=== PATIENT | female | born 1975 | race African-American/Black ===

== ENCOUNTER 2019-08-03 07:32 | Outpatient (CLI) | payer OTHER, SELFPAY ==
--- NOTE | ~2019-08-03 | MM_ITS ---
EXAMINATION: MM screening adria BI w maurizio HISTORY: Screening mammogram TECHNIQUE: Craniocaudal and mediolateral oblique 3-D tomosynthesis images were obtained and synthetic 2-D images were generated. CAD analysis was submitted and interpreted. COMPARISON: Comparison to multiple prior studies sequentially, with oldest reviewed study dated 09/2015. BREAST PARENCHYMAL COMPOSITION: There are scattered areas of fibroglandular density. FINDINGS: There is no evidence of suspicious mass, calcification, or architectural distortion to sugg est malignancy in either breast. There has been no suspicious interval change. IMPRESSION: 1. No mammographic evidence of malignancy. 2. Recommend routine screening mammography in one year. BI-RADS Category 1: Negative Reviewed, dictated and finalized at location A. GER IMAGING
== END 2019-08-03 07:33 | disposition home or self-care (01) ==
PROVIDERS: PCP Family Medicine; Visit Provider Obstetrics & Gynecology
DX: Z12.31 Encounter for screening mammogram for malignant neoplasm of breast (principal)
CPT/HCPCS: 77063; 77067

== ENCOUNTER 2019-08-23 14:58 | Emergency (ER) | payer OTHER, SELFPAY ==
[2019-08-23 15:06] VITALS: BP 130/78; PULSE 92; RESP 14; TEMP 36.1; O2SAT 100
--- NOTE | 2019-08-23 16:37 | ED.NECK ---
HPI - Neck Pain/Injury General Chief Complaint: Neck Pain/Injury <Gina Bethea PA-C - Last Filed: 08/23/19 16:41> Stated Complaint: right neck pain, radiating x1 wk <Gina Bethea PA-C - Last Filed: 08/23/19 16:41> Time Seen by Provider: 08/23/19 15:36 <Gina Bethea PA-C - Last Filed: 08/23/19 16:41> Source: patient <Gina Bethea PA-C - Last Filed: 08/23/19 16:41> Mode of arrival: ambulatory <KELSEY Stuart Last Filed: 08/23/19 16:41> Limitations: no limitations <Gina Bethea PA-C - Last Filed: 08/23/19 16:41> History of Present Illness HPI Narrative: Patient presents with chief complaint of right-sided neck spasming that began 1 week ago after the patient woke. Patient states she feels that her symptoms started by sleeping wrong. Patient denies any loss of range of motion, tingling or numbness to her upper extremity. Patient denies any chest pain or shortness of breath. Patient denies any direct injury to her neck or shoulder. Patient denies any other symptoms or concerns. <Gina Bethea PA-C - Last Filed: 08/23/19 16:41> Related Data Home Medications: Home Medications Medication Instructions Recorded Confirmed atorvastatin 80 mg PO DAILY 08/23/19 metformin 500 mg PO DAILY 08/23/19 <Gina Bethea PA-C - Last Filed: 08/23/19 16:41> Allergies/Adverse Reactions: Allergies Allergy/AdvReac Type Severity Reaction Status Date / Time Sulfa (Sulfonamide Allergy Unknown RESPIR. Verified 08/23/19 15:13 Antibiotics) DISTRESS <Gina Bethea PA-C - Last Filed: 08/23/19 16:41> Review of Systems Review of Systems: Narrative: CONSTITUTIONAL: Denies fever, chills, or sweats. EYES: Denies visual changes, redness, or discharge. ENT: Denies rhinorrhea, congestion, sore throat, or otalgia. CARDIOVASCULAR: Denies chest pain, palpitations, or edema. RESPIRATORY: Denies cough or dyspnea. GASTROINTESTINAL: Denies abdominal pain, nausea, vomiting, or diarrhea. GENITOURINARY: Denies dysuria or hematuria. SKIN: Denies rash or itching. MUSCULOSKELETAL: Reports neck pain denies back pain, joint pain, or myalgia. NEUROLOGIC: Denies headache, numbness, dizziness, or weakness. PSYCHIATRIC: Denies anxiety or depression. <Gina Bethea PA-C - Last Filed: 08/23/19 16:41> PMF Family History Family History: Family History (Updated 04/18/16 @ 14:07 by DOCTOR UNKNOWN) Sibling Diabetes mellitus Other Family history of allergic disorder Family history of malignant neoplasm Hypertension <Gina Bethea PA-C - Last Filed: 08/23/19 16:41> Social History Social History: Social History Smoking status: Never smoker Alcohol intake: current Gender identity (if verbalized by the patient): Female <Gina Bethea PA-C - Last Filed: 08/23/19 16:41> Exam Narrative: Exam Narrative: GENERAL: Well-appearing, well-nourished, and in no acute distress. HEAD: Normocephalic, atraumatic. EYES: PERRLA and EOMI. ENT: Nares clear, no rhinorrhea or epistaxis. Mucous membranes moist. Oropharynx without tonsillar hypertrophy exudate or other lesions. Bilateral TMs pearly heller nonbulging NECK: No tenderness to palpation with palpation of cervical spine. No bony step-offs palpated. Muscle spasming to upper trapezius on the right side. Muscle spasming elicited with palpation. No adenopathy or masses. No carotid bruits or JVD CHEST: Clear to auscultation. No respiratory distress. No wheezes rales or rhonchi HEART: Regular rate and rhythm. EXTREMITIES: Normal range of motion. No edema. SKIN: Warm, dry, no rash. NEURO: No focal deficits. Alert and oriented x3. PSYCH: Normal mood and affect. <Gina Bethea PA-C - Last Filed: 08/23/19 16:41> Course Vital Signs Vital signs: Vital Signs Temperature 97.0 F L 08/23/19 15:06 Pulse Rate 92 08/23/19 15:06 Respiratory Rate 14 08/23/19 15:06 Blood Pressure 130/78 08/23/19 15:
[2019-08-23] MEDS: KETOROLAC (*BKC) 60 MG/2 ML VIAL 30 MG IM (16:45)
[2019-08-23 17:19] VITALS: BP 128/76; PULSE 90; RESP 16; O2SAT 100
== END 2019-08-23 17:19 | disposition home or self-care (01) ==
LOC: ANHED 16:44
PROVIDERS: Emergency Provider General Practice; PCP Family Medicine
DX: M43.6 Torticollis (principal)
CPT/HCPCS: 96372; 99283; J1885

== ENCOUNTER 2020-04-12 07:46 | Outpatient (CLI) | payer OTHER, SELFPAY ==
--- NOTE | ~2020-04-12 | XR_ITS ---
EXAMINATION: XR shoulder RT min 2V INDICATION: Right shoulder pain TECHNIQUE: Four views of the right shoulder are submitted. COMPARISON: None FINDINGS: Normal alignment. No fracture. Glenohumeral and acromioclavicular joint spaces are normal. Soft tissues are unremarkable. IMPRESSION: 1. No acute osseous abnormality. Reviewed, dictated and finalized at location A. ROAD CAR CLEANER
== END 2020-04-12 07:47 | disposition home or self-care (01) ==
LOC: ANHIMG 07:49
PROVIDERS: PCP Family Medicine; Visit Provider Nurse Practitioner
DX: M25.511 Pain in right shoulder (principal)
CPT/HCPCS: 73030

== ENCOUNTER 2020-07-08 15:08 | Outpatient (CLI) | payer OTHER, SELFPAY ==
--- NOTE | ~2020-07-08 | US_ITS ---
EXAMINATION: US venous doppler [facility] DATE: 07/08/2020 15:38 INDICATION: Right lower limb pain and swelling TECHNIQUE: Grayscale ultrasound images without and with compression and Doppler ultrasound images of the right lower extremity veins were obtained. COMPARISON: None. FINDINGS: The visualized portions of right common femoral vein, profunda (deep) femoral vein, femoral vein, pop liteal vein, peroneal trunk, posterior tibial veins, peroneal veins, gastrocnemius vein and greater s aphenous vein outflow are patent. IMPRESSION: 1. No deep venous thrombosis in the right lower limb. Reviewed, dictated and finalized at location B. ECT DEVELOPER
== END 2020-07-08 15:09 | disposition home or self-care (01) ==
PROVIDERS: PCP Family Medicine; Visit Provider Family Medicine
DX: R60.0 Localized edema (principal)
CPT/HCPCS: 93971

== ENCOUNTER 2020-08-05 10:19 | Outpatient (CLI) | payer OTHER, SELFPAY ==
--- NOTE | ~2020-08-05 | MM_ITS ---
EXAMINATION: MM screening adria BI w maurizio HISTORY: Screening mammogram TECHNIQUE: Craniocaudal and mediolateral oblique 3-D tomosynthesis images were obtained and synthetic 2-D images were generated. CAD analysis was submitted and interpreted. COMPARISON: August 03, 2019 bilateral digital screening mammogram July 22, 2018 diagnostic left digital mammogram and limited left breast ultrasound 06/24/2018 bilateral digital screening mammogram 06/11/2017 diagnostic left digital mammogram and limited left breast ultrasound 05/16/2017, 04/13/2016 bilateral digital screening mammogram examinations BREAST PARENCHYMAL COMPOSITION: There are scattered areas of fibroglandular density. FINDINGS: There are multiple circumscribed oval low-density radiopacities scattered in the right uppe r outer and lower-outer quadrants, likely benign intramammary lymph nodes. Another similar low densit y circumscribed opacity is noted in the posterior upper left breast on MLO view, stable in appearance since 05/16/2017. There is no evidence of suspicious mass, calcification, or architectural distortion to suggest malign brandon in either breast. There has been no suspicious interval change. IMPRESSION: 1. No mammographic evidence of malignancy. 2. Recommend routine screening mammography in one year. BI-RADS Category 2: Benign finding(s). Reviewed, dictated and finalized at location A. BASE REPORT WRITER
== END 2020-08-05 10:20 | disposition home or self-care (01) ==
LOC: ANHIMG 10:21
PROVIDERS: PCP Family Medicine; Visit Provider Obstetrics & Gynecology
DX: Z12.31 Encounter for screening mammogram for malignant neoplasm of breast (principal)
CPT/HCPCS: 77063; 77067

== ENCOUNTER 2020-11-28 11:02 | Outpatient (CLI) | payer OTHER, SELFPAY ==
--- NOTE | ~2020-11-28 | XR_ITS ---
EXAMINATION: XR hand LT min 3V INDICATION: Left hand numbness TECHNIQUE: Three views of the left hand are obtained. COMPARISON: None available FINDINGS: Bone alignment is normal. There is no fracture. Mild osteoarthritis is noted in multiple in terphalangeal joints. The soft tissues are unremarkable. IMPRESSION: 1. No acute osseous abnormality. Reviewed, dictated and finalized at location A.
--- NOTE | ~2020-11-28 | XR_ITS ---
EXAMINATION:XR cervical spine 4-5V DATE: 11/28/2020 11:35 INDICATION: Neck pain TECHNIQUE: AP, lateral, lateral swimmers and odontoid views of the cervical spine are provided. COMPARISON: None FINDINGS: Alignment is normal. The odontoid is intact. No fracture is identified. The vertebral body heights are maintained. There is mild loss of intervertebral disc space height throughout the cervica l spine. Small degenerative osteophytes project from the anterior endplates of multiple vertebral bod ies. Prevertebral soft tissues are normal. IMPRESSION: 1. Mild cervical spondylosis without acute findings. Reviewed, dictated and finalized at location A.
--- NOTE | ~2020-11-28 | XR_ITS ---
EXAMINATION: XR hand RT min 3V INDICATION: Right hand numbness TECHNIQUE: Three views of the right hand are obtained. COMPARISON: None available FINDINGS: Bone alignment is normal. There is no fracture. Mild osteoarthritis is noted in multiple in terphalangeal joints. The soft tissues are unremarkable IMPRESSION: 1. No acute osseous abnormality. Reviewed, dictated and finalized at location A.
== END 2020-11-28 11:03 | disposition home or self-care (01) ==
LOC: ANHIMG 11:07
PROVIDERS: PCP Family Medicine; Visit Provider Family Medicine
DX: R20.0 Anesthesia of skin (principal); M47.892 Other spondylosis, cervical region
CPT/HCPCS: 72050; 73130

== ENCOUNTER 2021-08-18 07:54 | Outpatient (CLI) | payer OTHER, SELFPAY ==
--- NOTE | ~2021-08-18 | MM_ITS ---
EXAMINATION: MM screening adria BI w maurizio HISTORY: Screening TECHNIQUE: Craniocaudal and mediolateral oblique 3-D tomosynthesis images were obtained and synthetic 2-D images were generated. CAD analysis was submitted and interpreted. COMPARISON: Comparison to multiple prior studies sequentially, with oldest reviewed study dated 12/2016. BREAST PARENCHYMAL COMPOSITION: Breast composed of scattered areas of fibroglandular density FINDINGS: There are developing asymmetries in the right breast. The left breast is stable without tash dence for malignancy. IMPRESSION: 1. Developing right breast asymmetries. 2. Additional mammographic views and possible breast ultrasound are recommended. BI-RADS Category 0: Incomplete: Needs additional imaging evaluation. Reviewed, dictated and finalized at location A. RACTIVE VIDEO TECHNICIAN IMPRESSION: 1. Developing right breast asymmetries. 2. Additional mammographic views and possible breast ultrasound are recommended . BI-RADS Category 0: Incomplete: Needs additional imaging evaluation.
== END 2021-08-18 07:55 | disposition home or self-care (01) ==
LOC: ANHIMG 07:55
PROVIDERS: PCP Family Medicine; Visit Provider Obstetrics & Gynecology
DX: Z12.31 Encounter for screening mammogram for malignant neoplasm of breast (principal); R92.8 Other abnormal and inconclusive findings on diagnostic imaging of breast
CPT/HCPCS: 77063; 77067

== ENCOUNTER 2021-09-04 11:05 | Outpatient (CLI) | payer OTHER, SELFPAY ==
--- NOTE | ~2021-09-04 | XR_ITS ---
EXAMINATION: XR knee RT min 4V DATE: 09/04/2021 12:02 INDICATION: Right knee pain. TECHNIQUE: 4 views of right knee including standing views were obtained. COMPARISON: None. FINDINGS: Bone alignment is normal. No fracture. There is mild tricompartmental osteoarthritis charac terized by marginal osteophytes. No joint space narrowing. There is a small knee joint effusion. IMPRESSION: 1. Mild right knee osteoarthritis. 2. Small right knee joint effusion. Reviewed, dictated and finalized at location A.
--- NOTE | ~2021-09-04 | MMUS_ITS ---
EXAMINATION: MM diagnostic adria RT w maurizio, US breast RT limited HISTORY: Right breast asymmetries on screening mammogram TECHNIQUE: Additional 3-D tomosynthesis images of the right breast were performed and synthetic 2-D i mages were generated. CAD analysis was submitted and interpreted. High resolution limited right breas t ultrasound was performed. COMPARISON: 08/18/2021, 08/05/2020, 08/03/2019 FINDINGS: MAMMOGRAPHIC FINDINGS: There is a 9 mm oval, obscured, equal density mass in the middle third of the outer breast at the 10: 00 location 8 cm from the nipple. An 8 mm oval, circumscribed, low density masses present in the midd le third of the outer breast at the 9:00 location 8 cm from the nipple. There is a 6 mm oval, circums cribed, low-density mass in the posterior third of the upper-outer quadrant breast 10:00 location 12 cm from the nipple. ULTRASOUND: There is a 5 mm x 3 mm mass at the 9:00 location 10 cm from the nipple which has sonographic features suggestive of an intramammary lymph node. A 7 mm x 6 mm mass with similar sonographic features at th e 11:00 location 12 cm from the nipple also likely reflects an intramammary left. No definite sonogra phic correlate is identified for the mammographically detected mass at the 10:00 location 8 cm from t he nipple. IMPRESSION: 1. Probably benign right breast masses. 2. Recommend 6 month follow-up right diagnostic mammogram and ultrasound. BI-RADS category 3, probably benign findings. Reviewed, dictated and finalized at location A. IMPRESSION: 1. Probably benign right breast masses. 2. Recommend 6 month follow-up right diagnostic mammogram and ultrasound. BI-RADS category 3, probably benign findings.
== END 2021-09-04 11:06 | disposition home or self-care (01) ==
LOC: ANHIMG 11:06
PROVIDERS: PCP Family Medicine; Visit Provider Obstetrics & Gynecology Gynecology
DX: R92.8 Other abnormal and inconclusive findings on diagnostic imaging of breast (principal); M17.11 Unilateral primary osteoarthritis, right knee; M25.461 Effusion, right knee
CPT/HCPCS: 73564; 76642; 77061; 77065; G0279

== ENCOUNTER 2022-02-16 20:58 | Emergency (ER) | payer OTHER, SELFPAY ==
--- NOTE | ~2022-02-16 | CT_ITS ---
EXAMINATION: CTA chest PE protocol DATE: 02/17/2022 03:53 INDICATION: Left chest pain. Mild shortness of breath. Elevated d-dimer. TECHNIQUE: Computed tomography angiography (CTA) of the chest was performed with 100 mL Omnipaque-350 intravenous contrast timed to evaluate the pulmonary arteries. Coronal maximum intensity projection 3D-reconstructions were created by the technologist. Automated exposure control and iterative reconst ruction technique were employed. Exam dose: 510.38 mGy-cm total exam DLP. COMPARISON: 02/16/2022 2 view chest FINDINGS: There is diagnostic contrast enhancement of the pulmonary arteries and no evidence of pulmo nary embolism. No thoracic aortic aneurysm or dissection. No hilar or mediastinal mass lesion or lymphadenopathy. No rmal heart size. No pericardial or pleural effusion. Normal morphology of the adrenal glands. Included upper abdominal structures are unremarkable. Minimal bilateral lower lobe discoid atelectasis or scarring. Otherwise no pulmonary infiltrate or co nsolidation. Degenerative changes of the lower cervical spine and thoracic spine. IMPRESSION: No evidence of pulmonary embolism Bilateral lower lung discoid atelectasis and/or scarring Reviewed, dictated and finalized at Location A. Reviewed, dictated and finalized at location A.
--- NOTE | ~2022-02-16 | XR_ITS ---
EXAMINATION: XR chest 2V DATE: 02/16/2022 21:46 INDICATION: Chest pain TECHNIQUE: PA and lateral views of the chest were obtained. COMPARISON: None FINDINGS: Opacities at the left lower lung zone with blunting of the costophrenic and cardiophrenic angles but not of the posterior sulcus. Calcified nodules in the right midlung zone consistent with old granulom atous disease. No pneumothorax or pleural effusion. Mild cardiomegaly. Mild thoracic spondylosis. IMPRESSION: 1. Opacities at the left lung base which could represent pneumonia or atelectasis. Reviewed, dictated and finalized at location A. IMPRESSION: 1. Opacities at the left lung base which could represent pneumonia or atelectas is.
[2022-02-16 21:00] VITALS: BP 145/83; PULSE 104; RESP 18; TEMP 36.9; O2SAT 98
--- NOTE | 2022-02-16 21:03 | ECG_ITS ---
Measurements Intervals [place] Rate: 91 P: 41 GA: 160 QRS: 28 QRSD: 80 T: 10 QT: 348 QTc: 429 Interpretive Statements SINUS RHYTHM BORDERLINE T WAVE ABNORMALITY- ANTERIOR LEADS BASELINE WANDER- V4 BORDERLINE ECG NO PREVIOUS ECG AVAILABLE FOR COMPARISON Electronically Signed On 02-17-2022 14:43:15 CDT by Gibran Adhikari D.O.
[2022-02-16 21:33] LABS: Basophils Percent Auto 0.5 % (0.2-1.2); Eosinophils Absolute Auto 0.2 K/mm3 (0-0.3); Eosinophils Percent Auto 2.6 % (0-4.4); Hemoglobin 13.6 g/dL (12.0-15.0); Immature Granulocyte Absolute 0.01 K/mm3 (0.00-0.031); Immature Granulocyte Percent A 0.2 % (0-0.5); Lymphocytes Absolute Auto 2.63 K/mm3 (0.9-3.2); Lymphocytes Percent Auto 43.3 % (18.3-44.2); Mean Corpuscular HGB Conc 32.4 g/dl (32-36); Mean Corpuscular Hemoglobin 29.8 pg (26-34); Mean Corpuscular Volume 92.1 fl (80-100); Mean Platelet Volume 9.3 fl (7.4-10.4); Monocytes Absolute Auto 0.3 K/mm3 (0.1-0.6); Monocytes Percent Auto 5.6 % (2.6-8.5); Neutrophils Absolute Auto 2.9 K/mm3 (1.3-6.7); Neutrophils Percent Auto 47.8 % (45.5-73.1); Platelet Count Result 346 k/mm3 (150-375); Red Blood Count 4.56 M/mm3 (4.2-5.4); Red Cell Distribution Width 12.4 % (11.5-14.5); White Blood Count 6.1 K/mm3 (4.5-10.0)
[2022-02-16 21:43] LABS: Prothrombin Time 12.6 Seconds (11.1-14.7)
[2022-02-16 21:44] LABS: Partial Thromboplastin Time 25.6 SECONDS (22.3-36.8)
[2022-02-16 21:45] LABS: Alanine Aminotransferase 24 U/L (6-35); Albumin Level 4.2 g/dL (3.5-5.1); Alkaline Phosphatase 67 U/L (38-126); Anion Gap 12 mmol/L (8-16); Aspartate Amino Transferase 27 U/L (14-36); Bilirubin,Total 0.2 mg/dL (0.2-1.3); Blood Urea Nitrogen 10 mg/dL (7-17); Carbon Dioxide 25 mmol/L (22-30); Chloride 104 mmol/L (98-107); Estimated CRCL calculation 67 ml/min; Estimated Glomerular Filt Rate > 60; Glucose 108 mg/dL (65-110); Lipase 149 U/L (23-300); Potassium 3.8 mmol/L (3.4-5.0); Sodium 141 mmol/L (137-145)
[2022-02-16 21:56] LABS: Troponin I < 0.012 ng/mL (0.000-0.034)
[2022-02-17] VITALS (7 sets, daily range): BP systolic 111–117; BP diastolic 69–77; PULSE 79–85; RESP 14–18; O2SAT 99–100
--- NOTE | 2022-02-17 00:30 | ED.CHESTPAIN ---
HPI - Chest Pain General Chief Complaint: Chest Pain <Samson Patterson DO - Last Filed: 02/17/22 13:03> Stated Complaint: chest pressure <Samson Patterson DO - Last Filed: 02/17/22 13:03> Time Seen by Provider: 02/17/22 00:08 <Samson Patterson DO - Last Filed: 02/17/22 13:03> Source: RN notes reviewed <Samson Patterson DO - Last Filed: 02/17/22 13:03> History of Present Illness HPI narrative: She presents emergency department from home for chest pain. Patient states pain began around 5:00 this afternoon the pain is located in the midsternal chest and goes into the epigastric region described as sharp and stabbing in nature and radiates through to the back. Patient has mild shortness of breath with the pain she denies any fevers or chills, nausea vomiting diarrhea or any other symptoms. States she is not taking thing for the pain <Samson Patterson DO - Last Filed: 02/17/22 13:03> Related Data Home Medications: Home Medications Medication Instructions Recorded Confirmed atorvastatin 80 mg tablet 80 mg PO DAILY 08/23/19 metformin 500 mg tablet 500 mg PO DAILY 08/23/19 <Samson Patterson DO - Last Filed: 02/17/22 13:03> Allergies/Adverse Reactions: Allergies Allergy/AdvReac Type Severity Reaction Status Date / Time Sulfa (Sulfonamide Allergy Unknown RESPIR. Verified 02/17/22 00:09 Antibiotics) DISTRESS <Samson Patterson DO - Last Filed: 02/17/22 13:03> Review of Systems Review of Systems: Gen.: Denies fevers or chills Eyes: Denies eye pain or visual change ENT: Denies congestion Respiratory: D reports mild shortness of breath CV: reports chest GI: Reports epigastric abdominal pain, denies nausea, emesis or diarrhea Musculoskeletal: Denies back pain or muscle pain Neuro: Denies numbness, tingling, weakness or focal weakness Skin: Denies rash Except as documented, all other systems reviewed and negative <DO Bryanna Nicole Last Filed: 02/17/22 13:03> [facility] Past Medical History Medical History: Medical History (Updated 02/17/22 @ 06:03 by Andrea Dominguez MD) Diabetes mellitus <Samson Patterson DO - Last Filed: 02/17/22 13:03> Family History Family History: Family History (Updated 04/18/16 @ 14:07 by DOCTOR UNKNOWN) Sibling Diabetes mellitus Other Family history of allergic disorder Family history of malignant neoplasm Hypertension <Samson Patterson DO - Last Filed: 02/17/22 13:03> Social History Social History: Social History Smoking status: Never smoker Alcohol intake: current Gender identity (if verbalized by the patient): Female <Samson Patterson DO - Last Filed: 02/17/22 13:03> Exam Narrative: APPEARANCE: No acute distress, nontoxic, resting in bed EYES: EOMI HEENT: Normocephalic, atraumatic, OMM RESPIRATORY: No respiratory distress Clear to auscultation bilaterally with no rhonchi wheezing or rales. CARDIOVASCULAR: Regular rate and rhythm without murmurs rubs or gallops Chest: Tender palpation over the midline inferior sternum with no swelling or ecchymosis ABDOMINAL: Soft, nontender, tender to palpation epigastric and left upper quadrant no tenderness in the right upper quadrant, right lower quadrant left lower quadrant no rebound or guarding MUSCULOSKELETAl: Moves all extremities. No clubbing, cyanosis or edema. NEURO: Awake and alert. Following commands, speech normal, no focal deficits SKIN:: Warm, dry. No rashes lesions or abrasions PSYCHIATRIC: Normal affect/mood, <Samson Patterson DO - Last Filed: 02/17/22 13:03> Course Course Emergency Course: Care turned over to Dr. Dominguez at shift change awaiting CTA chest Patient informed of results. Discharge home with anti-inflammatories. Suspect pleurisy. Troponin negative x2. <Samson Patterson DO - Last Filed: 02/17/22 13:03> Patient informed of results. Di
[2022-02-17 01:00] LABS: Troponin I < 0.012 ng/mL (0.000-0.034)
[2022-02-17] MEDS: KETOROLAC 30 MG/ML VIAL (*BKC) IV PUSH (02:21)
[2022-02-17 02:47] LABS: D Dimer 0.54 ug/mL (<0.48)
--- NOTE | 2022-02-17 05:45 | PC.NURSE ---
Pt was stuck 4 separate times in attempt to get 6 hour tropoin. Pt verbalized to not be stuck again. EDP aware.
== END 2022-02-17 06:05 | disposition home or self-care (01) ==
PROVIDERS: Emergency Medicine; Emergency Provider Emergency Medicine; PCP Family Medicine
DX: R09.1 Pleurisy (principal); E11.9 Type 2 diabetes mellitus without complications; Z79.84 Long term (current) use of oral hypoglycemic drugs; R94.31 Abnormal electrocardiogram [ECG] [EKG]
CPT/HCPCS: 36415; 71046; 71275; 80053; 81025; 83690; 84484; 85025; 85380; 85610; 85730; 93005; 96374; 99284; A9270; J1885; Q9967

== ENCOUNTER 2022-05-17 11:59 | Outpatient (CLI) | payer OTHER, SELFPAY ==
--- NOTE | ~2022-05-17 | MMUS_ITS ---
EXAMINATION: MM diagnostic adria RT w maurizio, US breast RT limited HISTORY: Six-month follow-up for probably benign right breast masses TECHNIQUE: Craniocaudal, mediolateral, and mediolateral oblique 3-D tomosynthesis images of the right breast were performed and synthetic 2-D images were generated. CAD analysis was submitted and interp reted. High resolution limited right breast ultrasound was performed. COMPARISON: 09/04/2021, 08/18/2021, 08/05/2020, 08/03/2019 BREAST PARENCHYMAL COMPOSITION: There are scattered areas of fibroglandular density. FINDINGS: MAMMOGRAPHIC FINDINGS: There is a stable 8 mm oval, obscured, equal density mass in the posterior third of the outer breast at the 9:00 location 9 cm from the nipple. A 6 mm oval low-density mass in the posterior third of the upper outer quadrant of the breast at the 10:00 location 12 cm from the nipple is stable. No suspici ous mass, calcification, or architectural distortion are identified. ULTRASOUND: The previously described sonographically detected mass at the 11:00 location is no longer evident. A stable 5 mm x 3 mm oval, circumscribed, parallel, hypoechoic mass with no posterior features or inter nal vascularity is seen at the 9:00 location 10 cm from the nipple. IMPRESSION: 1. Probably benign right breast masses. 2. Recommend 6 month follow-up right diagnostic mammogram and ultrasound. BI-RADS category 3, probably benign findings. Reviewed, dictated and finalized at location A. TY TEACHER IMPRESSION: 1. Probably benign right breast masses. 2. Recommend 6 month follow-up right diagnostic mammogram and ultrasound. BI-RADS category 3, probably benign findings.
== END 2022-05-17 12:00 | disposition home or self-care (01) ==
PROVIDERS: PCP Family Medicine; Visit Provider Obstetrics & Gynecology Gynecology
DX: N63.10 Unspecified lump in the right breast, unspecified quadrant (principal)
CPT/HCPCS: 76642; 77061; 77065; G0279

== ENCOUNTER 2022-06-26 01:10 | Day surgery (SDC) | payer OTHER, SELFPAY ==
[2022-06-13 14:33] VITALS: BMI 30.9
[2022-06-26 07:50] VITALS: BP 116/72; PULSE 89; RESP 18; TEMP 36.4; O2SAT 100
--- NOTE | 2022-06-26 07:58 | P.HP_ITS ---
History of Present Illness History of Present Illness Consent: Risks, benefits, and alternatives have been discussed and questions answered. Patient agrees to proceed with procedure. Chief complaint: NEOPLASM SCREENING Narrative: Jolie Zeng is a 47 year old female Presents for screening colonoscopy. Patient's current weight appetite and bowel movements are normal. She denies abdominal pain. She has had no bleeding. Family history is noncontributory. Review of Systems Review of Systems: Review of systems noncontributory. [facility] Past Medical History Medical History (Updated 06/26/22 @ 07:59 by Kevin Saul MD) Diabetes mellitus Family History Family History (Updated 04/18/16 @ 14:07 by DOCTOR UNKNOWN) Sibling Diabetes mellitus Other Family history of allergic disorder Family history of malignant neoplasm Hypertension Social History Social History Smoking status: Never smoker Alcohol intake: current Alcohol use details: occasional Substance use type: does not use Living arrangements: with family Gender identity (if verbalized by the patient): Female Spiritual care concerns: No Meds Home Medications and Allergies Home Medications Medication Instructions Recorded Confirmed Type atorvastatin 80 mg tablet 80 mg PO DAILY 08/23/19 06/13/22 History metformin 500 mg tablet 500 mg PO DAILY 08/23/19 06/13/22 History tizanidine 2 mg capsule 2 mg PO Q8H PRN muscle spasticity 08/23/19 06/13/22 Rx #20 caps estradiol 0.1 mg/24 hr semiweekly 0.1 mg topical 2XW 06/13/22 06/13/22 History transdermal patch glimepiride 2 mg tablet 2 mg PO DAILY 06/13/22 06/13/22 History rosuvastatin 20 mg tablet 20 mg PO DAILY 06/13/22 06/13/22 History Allergies Allergy/AdvReac Type Severity Reaction Status Date / Time Sulfa (Sulfonamide Allergy Unknown RESPIR. Verified 06/26/22 07:48 Antibiotics) DISTRESS Vital Signs Vital Signs - 24 hr 06/26/22 07:50 Temperature 97.6 F Pulse Rate 89 Respiratory Rate 18 Blood Pressure 116/72 Pulse Oximetry 100 Oxygen Delivery Room Air Exam Narrative: Physical exam reveals patient to be alert. Vital signs stable. HEENT exam is unremarkable. Patient is anicteric. Lungs are clear to auscultation and percussion. Heart is without murmur or extra sounds. Abdomen bowel sounds are present soft nontender with no organomegaly. Digital external rectal exam is normal. Assessment and Plan Assessment and plan (1) Encounter for screening colonoscopy: Code(s): Z12.11 - Encounter for screening for malignant neoplasm of colon Status: Acute Assessment and Plan: Patient presents for screening colonoscopy. She appears to be at average risk for colon polyps. Further recommendations may be given after endoscopy
[2022-06-26] MEDS: LACTATED RINGERS 1,000 ML 150 ML IV CONT (08:02)
[2022-06-26 08:36] LABS: Glucose Point of Care 125 mg/dl (65-105)
--- NOTE | 2022-06-26 08:39 | WPDANESEPPF ---
Anes - Initial Pre Proc Eval Procedure: Operation Date: 06/26/22 09:00 Proposed Procedures p Colonoscopy - Kevin Saul MD Date/Time: 06/26/22 08:39 Surgeon: Kevin Saul MD Pre Op Diagnosis: NEOPLASM SCREENING Patient Data Age: 47 Gender: F Height: 1.65 m Weight: 83.3 kg Last Vital Signs Temp 97.6 F 06/26/22 07:50 Pulse 89 06/26/22 07:50 Resp 18 06/26/22 07:50 BP 116/72 06/26/22 07:50 Pulse Ox 100 06/26/22 07:50 O2 Del Method Room Air 06/26/22 07:50 Allergies Allergy/AdvReac Type Severity Reaction Status Date / Time Sulfa (Sulfonamide Allergy Unknown RESPIR. Verified 06/26/22 07:48 Antibiotics) DISTRESS Home Medications Medication Instructions Recorded Confirmed Type atorvastatin 80 mg tablet 80 mg PO DAILY 08/23/19 06/13/22 History metformin 500 mg tablet 500 mg PO DAILY 08/23/19 06/13/22 History tizanidine 2 mg capsule 2 mg PO Q8H PRN muscle spasticity 08/23/19 06/13/22 Rx #20 caps estradiol 0.1 mg/24 hr semiweekly 0.1 mg topical 2XW 06/13/22 06/13/22 History transdermal patch glimepiride 2 mg tablet 2 mg PO DAILY 06/13/22 06/13/22 History rosuvastatin 20 mg tablet 20 mg PO DAILY 06/13/22 06/13/22 History Laboratory Tests 06/26/22 08:02 POC Capillary Glucose 125 mg/dl H mg/dl (65-105) Patient hx anesthesia problems: none Family hx anesthesia problems: none Results Review: All pre-operative results and documents have been reviewed as part of the pre-operative evaluation. [facility] Past Medical History Medical History (Updated 06/26/22 @ 07:59 by Kevin Saul MD) Diabetes mellitus Family History Family History (Updated 04/18/16 @ 14:07 by DOCTOR UNKNOWN) Sibling Diabetes mellitus Other Family history of allergic disorder Family history of malignant neoplasm Hypertension Social History Social History Smoking status: Never smoker Alcohol intake: current Alcohol use details: occasional Substance use type: does not use Living arrangements: with family Gender identity (if verbalized by the patient): Female Spiritual care concerns: No Anes - Eval Final PreProcedure Day of Procedure 06/26/22 08:39 Patient weight: obese Heart: regular rate and rhythm Lungs: clear to auscultation Airway: Mallampati scale class II Neurological: alert and oriented Last oral intake: >/= 8 hours ASA classification: II Emergent: no Anesthetic plan: proceed Anesthesia type and monitoring: general GIVS and standard monitoring Results Review: All pre-operative results and documents have been reviewed as part of the pre-operative evaluation. Informed Consent: The patient's anesthetic plan and its attendant risks and benefits were discussed with the patient/family/POA. Questions were solicited and answers provided to the satisfaction of the patient/family/POA.
[2022-06-26 09:31] VITALS: BP 104/62; PULSE 110; RESP 20; O2SAT 99
[2022-06-26 09:41] VITALS: BP 120/88; PULSE 91; RESP 20; O2SAT 98
[2022-06-26 09:51] VITALS: BP 135/92; PULSE 86; RESP 22; O2SAT 99
== END 2022-06-26 10:00 | disposition home or self-care (01) ==
PROVIDERS: PCP Family Medicine; Visit Provider Internal Medicine Gastroenterology
PROC: 0DJD8ZZ Inspection of Lower Intestinal Tract, Via Natural or Artificial Opening Endoscopic (ICD-10-PCS; CPT 45378; principal; 2022-06-26 09:00)
DX: Z12.11 Encounter for screening for malignant neoplasm of colon (principal); D12.2 Benign neoplasm of ascending colon; K64.8 Other hemorrhoids; E11.9 Type 2 diabetes mellitus without complications; Z79.84 Long term (current) use of oral hypoglycemic drugs; E66.9 Obesity, unspecified; Z68.30 Body mass index [BMI] 30.0-30.9, adult
CPT/HCPCS: 45380; 82948; 88305; J2704; J7120

== ENCOUNTER 2022-11-27 11:19 | Outpatient (CLI) | payer OTHER, SELFPAY ==
--- NOTE | ~2022-11-27 | MMUS_ITS ---
EXAMINATION: MM diagnostic adria BI w maurizio, US breast RT complete HISTORY: Six-month follow-up right breast; 12 month screening of left breast. TECHNIQUE: ML, MLO and CC 3-D tomosynthesis images of both breasts were performed and synthetic 2-D i mages were generated. Magnification views of the right breast. CAD analysis was submitted and interpr eted. High resolution complete right breast ultrasound examination including all 4 quadrants and suba reolar area was performed. COMPARISON: 05/17/2022 diagnostic right mammogram and limited right breast ultrasound 08/27/2021 diagnostic right mammogram 08/18/2021 bilateral screening mammogram BREAST PARENCHYMAL COMPOSITION: There are scattered areas of fibroglandular density. FINDINGS: MAMMOGRAPHIC FINDINGS: There is some benign-appearing grouped microcalcifications in the lower outer right breast. There is an approximately 4 x 8 mm circumscribed opacity in the posterior outer mid right breast, pos sibly an intramammary lymph node, not significantly changed since August 03, 2019. No suspicious mass or architectural distortion, malignant calcified, skin thickening or retraction is detected in either breast otherwise. ULTRASOUND: There is an approximately 4.5 mm sonolucency with through transmission posterior enhancement at 9:00 7 cm from the nipple, corresponding to the approximate position of the mammographic finding. This may be associated with a benign appearing lymph node. IMPRESSION: 1. Benign findings 2. Routine annual mammographic screening is recommended BI-RADS Category 2: Benign finding(s). Reviewed, dictated and finalized at location A. IMPRESSION: 1. Benign findings 2. Routine annual mammographic screening is recommended BI-RADS Category 2: Benign finding(s).
== END 2022-11-27 11:20 | disposition home or self-care (01) ==
LOC: ANHIMG 11:20
PROVIDERS: PCP Family Medicine; Visit Provider Obstetrics & Gynecology Gynecology
DX: N63.10 Unspecified lump in the right breast, unspecified quadrant (principal); R92.8 Other abnormal and inconclusive findings on diagnostic imaging of breast
CPT/HCPCS: 76641; 77062; 77066; G0279

== ENCOUNTER 2023-10-02 07:26 | Outpatient (CLI) | payer OTHER, SELFPAY ==
--- NOTE | ~2023-10-02 | XR_ITS ---
Left Knee Technique: AP, lateral, and sunrise views were obtained. Clinical History: Pain Findings: No fracture or dislocation is seen. Osseous alignment is anatomic. Minimal degenerative spu rring noted about the knee. Soft tissues are unremarkable. No joint effusion is seen. Impression: Minimal degenerative spurring. Reviewed, dictated and finalized at [facility]. Impression: Minimal degenerative spurring.
--- NOTE | ~2023-10-02 | XR_ITS ---
Right Knee Technique: AP, lateral, and sunrise views were obtained. Clinical History: Pain Findings: No fracture or dislocation is seen. Osseous alignment is anatomic. Today degenerative spurr ing is noted. Soft tissues are unremarkable. No joint effusion is seen. Impression: Minimal degenerative spurring. Reviewed, dictated and finalized at location . Impression: Minimal degenerative spurring.
== END 2023-10-02 07:27 | disposition home or self-care (01) ==
PROVIDERS: PCP Family Medicine
DX: M25.562 Pain in left knee (principal); M25.561 Pain in right knee; G89.29 Other chronic pain
CPT/HCPCS: 73564

== ENCOUNTER 2024-01-17 09:45 | Outpatient (CLI) | payer OTHER, SELFPAY ==
--- NOTE | ~2024-01-17 | MM_ITS ---
EXAMINATION: MM screening adria BI w maurizio HISTORY: Screening TECHNIQUE: Craniocaudal and mediolateral oblique 3-D tomosynthesis images were obtained and synthetic 2-D images were generated. CAD analysis was submitted and interpreted. COMPARISON: Comparison to multiple prior studies sequentially, with oldest reviewed study dated 08/03. BREAST PARENCHYMAL COMPOSITION: Not dense: There are scattered areas of fibroglandular density. FINDINGS: There is a developing mass in the upper outer quadrant of the right breast posteriorly. The left breast is stable without evidence for malignancy. IMPRESSION: 1. Developing right breast mass upper outer quadrant posterior third. 2. Additional mammographic views and possible breast ultrasound are recommended. BI-RADS Category 0: Incomplete: Needs additional imaging evaluation. Reviewed, dictated and finalized at location B. IMPRESSION: 1. Developing right breast mass upper outer quadrant posterior third. 2. Additional mammographic views and possible breast ultrasound are recommended . BI-RADS Category 0: Incomplete: Needs additional imaging evaluation.
== END 2024-01-17 09:46 | disposition home or self-care (01) ==
PROVIDERS: PCP Family Medicine; Visit Provider Family Medicine
DX: Z12.31 Encounter for screening mammogram for malignant neoplasm of breast (principal); R92.8 Other abnormal and inconclusive findings on diagnostic imaging of breast
CPT/HCPCS: 77063; 77067

== ENCOUNTER 2024-04-07 12:23 | Outpatient (CLI) | payer OTHER, SELFPAY ==
--- NOTE | ~2024-04-07 | MM_ITS ---
EXAMINATION: MM diagnostic adria RT w maurizio HISTORY: Right breast mass TECHNIQUE: Additional 3-D tomosynthesis images of the right breast were performed and synthetic 2-D i mages were generated. CAD analysis was submitted and interpreted. COMPARISON: 01/17/2024, 11/27/2022, 05/17/2022 BREAST PARENCHYMAL COMPOSITION:Not Dense. There are scattered areas of fibroglandular density. FINDINGS: Spot compression views confirm a reniform low-density lobulated mass with fatty hilum, comp atible with benign lymph node. This mass is stable dating back to 05/17/2022. No other suspicious mass or distortion are evident. No suspicious microcalcification. IMPRESSION: No mammographic evidence for malignancy. BI-RADS Category 2: Benign finding(s). Reviewed, dictated and finalized at location .
== END 2024-04-07 12:24 | disposition home or self-care (01) ==
LOC: ANHIMG 12:26
PROVIDERS: PCP Family Medicine; Visit Provider Family Medicine
DX: R92.8 Other abnormal and inconclusive findings on diagnostic imaging of breast (principal)
CPT/HCPCS: 77061; 77065; G0279